=== PATIENT | female | born 1995 | race African-American/Black ===

== ENCOUNTER 2018-08-29 04:04 | Emergency (ER) | payer SELFPAY ==
[~2018-08-29] VITALS: Ht 149.9 cm; Wt 66.1 kg
[2018-08-29 04:09] VITALS: BP 105/69; PULSE 102; RESP 20; Ht 149.9 cm; Wt 66.1 kg
== END 2018-08-29 06:42 | disposition left against medical advice (07) ==
LOC: FTE 04:04
DX: Z53.21 Procedure and treatment not carried out due to patient leaving prior to being seen by health care provider (principal)